=== PATIENT | female | born 1970 | race Caucasian/White ===

== ENCOUNTER 2023-12-18 20:28 | Emergency (ER) | payer BC ==
[~2023-12-18] VITALS: Ht 170.2 cm; Wt 127.0 kg
[2023-12-18 20:29] VITALS: PULSE 107; RESP 18; TEMP 97.9; O2SAT 99
[2023-12-18 21:06] LABS: BASOPHILS # (AUTO) 0.1 K/uL (0.0-0.2); BASOPHILS % (AUTO) 0.8 % (0.0-2.0); EOSINOPHILS # (AUTO) 0.2 K/uL (0.0-0.4); EOSINOPHILS % (AUTO) 2.5 % (0.0-4.0); HEMOGLOBIN 13.6 g/dL (12.0-16.0); LYMPHOCYTES # (AUTO) 1.9 K/uL (1.0-5.5); LYMPHOCYTES % (AUTO) 19.4 % (20.5-51.5); MEAN CORPUSCULAR HEMOGLOBIN 30 pg (27-31); MEAN CORPUSCULAR HGB CONC 34 % (32-36); MEAN CORPUSCULAR VOLUME 87 fL (79.0-98.0); MONOCYTES # (AUTO) 0.5 K/uL (0.0-1.0); MONOCYTES % (AUTO) 5.2 % (1.7-9.3); NEUTROPHILS # (AUTO) 7.2 K/uL (1.8-7.7); NEUTROPHILS % (AUTO) 72.1 % (40.0-70.0); PLATELET COUNT (AUTO) 341 K/uL (130-430); RED BLOOD CELL COUNT(AUTO) 4.59 MIL/uL (4.2-6.2); RED CELL DISTRIBUTION WIDTH 13.1 % (9.0-15.0)
[2023-12-18 21:32] LABS: ANION GAP 9 (5-15); CALCIUM 8.5 mg/dL (8.4-11.0); CARBON DIOXIDE 27 mmol/L (23-29); CHLORIDE 108 mmol/L (98-107); CREATININE 0.89 mg/dL (0.55-1.30); GFR AFRICAN AMERICAN 85 mL/min (>90); GLUCOSE 140 mg/dL (74-106); POTASSIUM 4.1 mmol/L (3.5-5.1); SODIUM SERUM 144 mmol/L (136-145); UREA NITROGEN, BLOOD 17 mg/dL (8-21)
[2023-12-18 21:43] LABS: GFR NON AFRICAN-AMERICAN 71 mL/min (>90)
[2023-12-18] MEDS: KETOROLAC TROMETHAMINE 30 MG VIAL IM ONE (23:54)
[2023-12-18] MEDS: ACETAMINOPHEN 500 MG TABLET PO ONE (23:55)
[2023-12-19] MEDS ORDERED: AMOX500C2 PO (00:50)
[2023-12-19] MEDS ORDERED: AZIT-93 PO (00:51)
[2023-12-19] MEDS: AMOXICILLIN 500 MG CAPSULE PO ONE (01:05)
[2023-12-19] MEDS: AZITHROMYCIN 250 MG TABLET PO ONE (01:05)
[2023-12-19 01:13] VITALS: BP_SYST 118; PULSE 92; RESP 20; TEMP 98.1; O2SAT 95
== END 2023-12-19 01:13 | disposition home or self-care (01) ==
LOC: SED 20:28
DX: J18.9 Pneumonia, unspecified organism (principal); R07.9 Chest pain, unspecified; R00.0 Tachycardia, unspecified; Z79.2 Long term (current) use of antibiotics
CPT/HCPCS: 99285; 71045; 80048; 85025; 85379; 84484; 36415; 93005; 96372; J1885; Q0144